=== PATIENT | male | born 1990 | race African-American/Black ===

== ENCOUNTER 2024-05-25 17:22 | Emergency (ER) | payer MEDICAID ==
[~2024-05-25] VITALS: Ht 162.6 cm; Wt 54.0 kg
[2024-05-25 17:26] VITALS: BP 111/79; PULSE 68; RESP 18; TEMP 37.1; O2SAT 99
[2024-05-25] MEDS: LORAZEPAM 0.5MG TABLET PO ONE (22:05)
[2024-05-25 22:25] LABS: BASOPHILS % 1.3 % (0.0-2.0); EOSINOPHILS % 0.7 % (0.0-5.0); HEMATOCRIT. 45.5 % (42.0-52.0); HEMOGLOBIN. 14.8 g/dL (14.0-18.0); LYMPHOCYTES % 15.2 % (20.0-50.0); MEAN CORPUSCULAR HEMOGLOBIN 29.4 pg (28.0-32.0); MEAN CORPUSCULAR HGB CONC 32.4 g/dL (31.0-37.0); MEAN CORPUSCULAR VOLUME 90.7 fL (80.0-94.0); MEAN PLATELET VOLUME 8.3 fl (7.4-10.4); NEUTROPHILS % 77.8 % (40.0-76.0); PLATELET 212 x1000/uL (130-400); RED BLOOD CELL COUNT 5.02 mill/uL (4.7-6.1); RED CELL DISTRIBUTION WIDTH 12.8 % (11.6-14.6); WHITE BLOOD COUNT 7.5 x1000/uL (4.5-11.0)
[2024-05-25 22:32] LABS: CHLORIDE 104 mEq/L (98-107); POTASSIUM 4.3 mEq/L (3.5-5.1); SODIUM 141 mEq/L (136-145)
[2024-05-25 22:33] LABS: CARBON DIOXIDE 29 mEq/L (21-32)
[2024-05-25 22:34] LABS: CALCIUM 10.4 mg/dL (8.7-10.4)
[2024-05-25 22:38] LABS: CREATININE 0.9 mg/dL (0.6-1.3); GLUCOSE 94 mg/dL (70-105); UREA NITROGEN BLOOD 6 mg/dL (9-23)
== END 2024-05-26 00:29 | disposition home or self-care (01) ==
LOC: ER 17:22
DX: F41.9 Anxiety disorder, unspecified (principal)
CPT/HCPCS: 36415; 80048; 85025; 99283